=== PATIENT | female | born 1975 | race Caucasian/White ===

== ENCOUNTER 2021-09-11 16:24 | Emergency (ER) | payer BC, OTHER ==
[~2021-09-11] VITALS: Ht 152 cm; Wt 68.0 kg
[2021-09-11 16:36] VITALS: BP 149/83
--- NOTE | 2021-09-11 16:53 | ED Integumentary General ---
General Chief Complaint: Skin/Wound Problems Stated Complaint: L ARM RASH Nursing Triage Note: Patient has presented to ER with cc of a "rash" on her left arm. She has what appears to be a bruise on her upper left arm. She denies any known injury or trauma. Source: patient Exam Limitations: no limitations History of Present Illness Date Seen by Provider: Sep 11, 2021 Time Seen by Provider: 16:28 Initial Comments 46-year-old female with past medical history of fibromyalgia coming in due to to what she is concerned is an infection on her left arm. She noticed that roughly 2 days ago. She does not remember injuring it or having any bites to it. She says she has been staying in her parents basement, and there have been multiple bugs, and there is a pipe leaking. She is concerned for her general health from staying in this basement. Currently she is staying at a hotel. Allergies and Home Medications Allergies Coded Allergies: No Known Drug Allergies (Unverified , 09/11/21) Patient Home Medication List Home Medication List Reviewed: Yes Review of Systems Review of Systems Constitutional: No fever EENTM: No blurred vision Respiratory: No cough Cardiovascular: No chest pain Gastrointestinal: No abdominal pain Genitourinary: no symptoms reported Musculoskeletal: no symptoms reported Skin: other (Bruise) Psychiatric/Neurological: No Symptoms Reported Endocrine: No Symptoms Reported Hematologic/Lymphatic: No Symptoms Reported All Other Systems Reviewed Negative Unless Noted: Yes Past [id number]-[id number] Hx Patient Social History Tobacco Use?: No Use of E-Cig and/or Vaping dev: No Substance use?: No Alcohol Use?: No Past Medical History Surgeries: No Physical Exam Vital Signs Vital Signs - First Documented 09/11/21 16:36 Temp 36.4 Pulse 112 Resp 20 B/P (MAP) 149/83 (105) Pulse Ox 100 O2 Delivery Room Air Capillary Refill : General Appearance: WD/WN, no apparent distress HEENT: PERRL/EOMI, normal ENT inspection, pharynx normal Neck: non-tender, full range of motion, supple, normal inspection Cardiovascular: regular rate, rhythm, no edema, no murmur Respiratory: chest non-tender, lungs clear, normal breath sounds, no respiratory distress, no accessory muscle use Gastrointestinal: normal bowel sounds, non tender, soft; No distended, No guarding, No rebound Back: normal inspection, no CVA tenderness Extremities: normal range of motion, no pedal edema, no calf tenderness, normal capillary refill, other (Ecchymosis without any swelling to the left bicep region, mildly tender, no bone tenderness, no rash, scattered bug bites without infection) Neurologic/Psychiatric: no motor/sensory deficits, alert, normal mood/affect Skin: normal color, warm/dry Lymphatic: no adenopathy Progress/Results/Core Measures Results/Orders Vital Signs/I&O 09/11/21 16:36 Temp 36.4 Pulse 112 Resp 20 B/P (MAP) 149/83 (105) Pulse Ox 100 O2 Delivery Room Air Blood Pressure Mean: 105 Progress Progress Note : Progress Note 38-year-old female with above history coming in to do a skin check. ABCs were intact and vitals were stable on presentation. 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 She says she is still on antibiotics that she is on daily for months per her primary care provider. Fortunately, it is just a bruise on her bicep. I believe she is stable for discharge with outpatient follow-up. She was sent home with strict return precautions Departure Impression Primary Impression: Arm bruise Qualified Codes: S40.022A - Contusion of left upper arm, initial encounter Disposition: 01 HOME, SELF-CARE Condition: Stable Departure-Patient Inst. Decision time for Depature: 16:53 Referrals: NO,LOCAL PHYSICIAN (PCP/Family) Primary Care Physician Patient Instructions: Contusion (DC) Add. Discharge Instructions: Fortunately it looks like a bruise and does not look like an infection. If you are having pain you can take ibuprofen and/or Tylenol as needed. It will change color until it fully fades away. JACQUELINE ENRIQUEZ MD Sep 11, 2021 16:53
== END 2021-09-11 16:58 | disposition home or self-care (01) ==
LOC: ER FS 16:25
DX: M79.81 Nontraumatic hematoma of soft tissue (principal)
CPT/HCPCS: 99281